=== PATIENT | female | born 1985 | race Two or more races ===

== ENCOUNTER → 2018-03-22 | Day surgery (SDC) | payer OTHER ==
[~2018-03-22] VITALS: Ht 165.1 cm; Wt 104.3 kg
[~2018-03-22] MED LIST: ALDACTONE25 MG; JANUMET 50-1,01 EACH; LOSARTAN POTASS50 MG
== END | disposition home or self-care (01) ==
LOC: ER 05:51 → SEC-K 08:05 → EDBD 08:05 → SEC-K 12:28 → O/R 12:28 → CIR.AMB 13:00
DX: N84.0 Polyp of corpus uteri (principal)